=== PATIENT | female | born 1950 | race Caucasian/White ===

== ENCOUNTER → 2016-08-05 | Outpatient (CLI) | payer MEDICARE, BC ==
--- NOTE | 2016-08-05 13:22 | MM ---
Reason for exam: screening (asymptomatic). Last mammogram was performed 1 year ago. History: Patient is postmenopausal and had first child at age 36. Physical Findings: A clinical breast exam by your physician is recommended on an annual basis and results should be correlated with mammographic findings. MG 3D Screening Mammo W/Cad Bilateral CC and MLO view(s) were taken. Prior study comparison: July 31, 2015, bilateral MG screening mammo w CAD. July 25, 2014, bilateral MG screening mammo w CAD. May 05, 2013, bilateral digital screening mammo w/CAD. The breast tissue is heterogeneously dense. This may lower the sensitivity of mammography. Finding: There are typically benign round calcifications in both breasts. There is no discrete abnormality. ASSESSMENT: Benign, BI-RAD 2 RECOMMENDATION: Routine screening mammogram of both breasts in 1 year.
== END | disposition home or self-care (01) ==
LOC: RADMAMWWP 06:51
PROVIDERS: ATTEND Family Medicine
DX: Z12.31 Encounter for screening mammogram for malignant neoplasm of breast (principal)
CPT/HCPCS: 77063; G0202

== ENCOUNTER → 2018-08-10 | Outpatient (CLI) | payer BC, MEDICARE ==
--- NOTE | 2018-08-11 11:48 | MM ---
Reason for exam: screening (asymptomatic). Last mammogram was performed 2 years ago. History: Patient is postmenopausal and had first child at age 36. Physical Findings: A clinical breast exam by your physician is recommended on an annual basis and results should be correlated with mammographic findings. MG Screening Mammo w CAD Bilateral CC and MLO view(s) were taken. Prior study comparison: August 05, 2016, bilateral MG 3d screening mammo w/cad. July 31, 2015, bilateral MG screening mammo w CAD. The breast tissue is heterogeneously dense. This may lower the sensitivity of mammography. There is a 3mm group of calcifications in the left lower inner quadrant at anterior depth. ASSESSMENT: Incomplete: need additional imaging evaluation, BI-RAD 0 RECOMMENDATION: Special view mammogram of the left breast. [facility] will attempt to contact patient to return for supplemental views.
== END | disposition home or self-care (01) ==
LOC: RADMAMWWP 08:09
PROVIDERS: ATTEND Family Medicine
DX: Z12.31 Encounter for screening mammogram for malignant neoplasm of breast (principal)
CPT/HCPCS: 77067

== ENCOUNTER → 2018-08-15 | Outpatient (CLI) | payer MEDICARE ==
--- NOTE | 2018-08-16 07:48 | MM ---
Reason for exam: additional evaluation requested from abnormal screening. Last mammogram was performed less than 1 month ago. History: Patient is postmenopausal and had first child at age 36. Physical Findings: Nurse did not find any significant physical abnormalities on exam. MG 3D Work Up W/Cad LT CC with magnification, LM with magnification, and LM view(s) were taken of the left breast. Prior study comparison: August 10, 2018, bilateral MG screening mammo w CAD. August 05, 2016, bilateral MG 3d screening mammo w/cad. Increasing 7 o'clock slightly heterogeneous grouped calcifications. Biopsy recommended. These results were verbally communicated with the patient and result sheet given to the patient on 08/15/18. ASSESSMENT: Suspicious, BI-RAD 4 RECOMMENDATION: Surgical consultation and stereotactic core biopsy of the left breast. Called Dr. Franco with mammographic findings and has scheduled an appointment for the patient for 09/01/18 at 12:[address] Sutherland. Biopsy scheduled for 09/08/18 at 8:00. PRELIMINARY REPORT CALLED AND FAXED TO DR. SUTHERLAND ON 08/15/18.
== END ==
LOC: RADMAMWWP 14:13
PROVIDERS: ATTEND Family Medicine
DX: R92.8 Other abnormal and inconclusive findings on diagnostic imaging of breast (principal)
CPT/HCPCS: 77065; G0279; 77061

== ENCOUNTER → 2018-09-01 | Outpatient (CLI) | payer MEDICARE ==
[2018-09-01 11:58] VITALS: BP 130/85; PULSE 73; RESP 18; TEMP 99.2; BMI 29.0
--- NOTE | 2018-09-01 12:20 | P.GSHP ---
History of Present Illness H&P Date: 09/01/18 Chief Complaint: abnormal left breast mammogram Layla is a 67-year-old white female who underwent routine screening mammogram was noted to have an area of microcalcification in the left breast. The mammogram was performed on 420 [id number]. Additional views of the left breast were performed and 420 [id number]. The patient does not show anything of concern in her breasts. She has no complaints of any pain in her breasts. She has no nipple discharge or skin changes of concern. Family History: none Hormonal History: menarche: 13 : first at 36, bresat fed: no menopause: 49 BCP: 1 year hormones: none Past Surgical History: 1. appy Past Medical Nistory: none Social History: smoke: none alcohol: beer daily drugs: none - Constitutional Constitutional: Denies chills, Denies fever - EENT Eyes: denies blurred vision, denies pain Ears: deny: decreased hearing, tinnitus Ears, nose, mouth and throat: Denies headache, Denies sore throat - Breasts Breasts: bilateral: as per HPI - Cardiovascular Cardiovascular: Reports high blood pressure, Denies chest pain, Denies shortness of breath - Respiratory Respiratory: Reports cough - Gastrointestinal Gastrointestinal: Denies abdominal pain, Denies diarrhea, Denies nausea, Denies vomiting - Genitourinary (Female) Genitourinary: Denies dysuria, Denies hematuria - Menstruation Menstruation: Reports postmenopausal - Musculoskeletal Comment: arthritis - Integumentary Integumentary: Denies pruritus, Denies rash - Neurological Neurological: Denies numbness, Denies weakness - Psychiatric Psychiatric: Denies anxiety, Denies depression - Endocrine Endocrine: Reports weight change, Denies fatigue - Hematologic/Lymphatic Comment: none - Allergic/Immunologic Allergic/Immunologic: Reports seasonal allergies Past Medical History Past Medical History: No Reported History History of Any Multi-Drug Resistant Organisms: None Reported Past Surgical History: Appendectomy Additional Past Surgical History / Comment(s): COLONOSCOPY IN 2009 Past Anesthesia/Blood Transfusion Reactions: No Reported Reaction, Motion Sickness Past Psychological History: No Psychological Hx Reported Smoking Status: Never smoker Past Alcohol Use History: Occasional Past Drug Use History: None Reported - Past Family History Mother Family Medical History: No Reported History Medications and Allergies Home Medications Medication Instructions Recorded Confirmed Type Cholecalciferol [Vitamin D3] 1 tab PO WEEKLY 03/18/17 09/01/18 History Lisinopril [Zestril] 10 mg PO DAILY 08/22/18 09/01/18 History Allergies Allergy/AdvReac Type Severity Reaction Status Date / Time No Known Allergies Allergy Verified 08/22/18 15:09 Surgical - Exam Vital Signs Temp Pulse Resp BP Pulse Ox 99.2 F 73 18 130/85 96 09/01/18 11:44 09/01/18 11:44 09/01/18 11:44 09/01/18 11:44 09/01/18 11:44 BMI 29 - General well developed, well nourished, no distress - Eyes normal ocular movement - ENT no hearing loss - Neck no masses, trachea midline - Respiratory normal respiratory effort, clear to auscultation - Cardiovascular Rhythm: regular Heart Sounds: normal: S1, S2 - Abdomen Abdomen: soft, non tender, no guarding, no rigid, no rebound - Integumentary normal turgor - Neurologic no disoriented, no combative - Musculoskeletal normal gait, normal posture - Psychiatric oriented to time, oriented to person, oriented to place, speech is normal, memory intact breast exam: Right breast: Multi-positional exam no dominant masses or nodules of concern, fibrocystic breast changes Right axilla: No adenopathy of concern Left breast: Multiple positional exam no dominant masses or nodules of concern, fibrocystic changes Left axilla: No adenopathy of concern Results Mammogram results reviewed Assessment and Plan Assessment: Impression: 1. Fibrocystic breast changes bilaterally 2. Mammographic abnormality left breast 3. Hypertension 4. Arthritis The stereotactic core biopsy procedure was discussed with the patient. She understands risks and benefits and wishes to proceed. Plan: 1. Stereotactic core biopsy left breast. 2. Medical management of medical conditions Cc: Dr. Franco
== END | disposition home or self-care (01) ==
LOC: WWCWWP 11:38
PROVIDERS: ATTEND Surgery
DX: Z53.9 Procedure and treatment not carried out, unspecified reason (principal)

== ENCOUNTER → 2018-09-08 | Day surgery (SDC) | payer MEDICARE ==
[2018-09-08 07:19] VITALS: RESP 16; BMI 29.0
[2018-09-08 08:44] VITALS: BP 144/88; PULSE 66; TEMP 98.4
--- NOTE | 2018-09-08 09:17 | MM ---
EXAMINATION TYPE: MG stereo VAD BX LT DATE OF EXAM: 09/08/2018 COMPARISON: 08/10/2018 CLINICAL HISTORY: 3 mm group of calcifications in the left lower inner quadrant at anterior depth for which stereotactic guided biopsy was recommended. TECHNIQUE: Stereotactic guided core biopsy of left breast. FINDINGS: The procedure of stereotactic guided core biopsy was explained to the patient. Benefits, a lternatives, and risks were discussed. An informed consent was then obtained. Preprocedural timeout was performed. [facility]. Shortness pathway was CC from below approach. I perform ed the localization, then surgeon, Dr. Alex Gomez performed the remainder of the procedure. A vacuum assisted biopsy gun was used to obtain multiple core samples. The patient tolerated the procedure well without any immediate complication. The patient was kept in the radiology department for short stay after the procedure and then discharged home in stable condi tion. Targeted calcifications are identified in specimen mammogram. Post biopsy mammogram shows the T-shaped [employer] biopsy marker to appear in satisfactory position relative to the targeted area of concern on the preprocedure images. IMPRESSION: SUCCESSFUL, UNCOMPLICATED STEREOTACTIC GUIDED CORE BIOPSY OF AREA OF CONCERN IN THE LEFT BREAST, FULL PATHOLOGY RESULTS TO FOLLOW.
--- NOTE | 2018-09-08 10:40 | P.OP ---
Date of Procedure: 09/08/18 Preoperative Diagnosis: Mammographic abnormality left breast Postoperative Diagnosis: Mammographic abnormality left breast Procedure(s) Performed: Stereotactic core biopsy left breast Anesthesia: local Surgeon: Mona Chavez Pathology: other (Breast tissue) Condition: stable Disposition: same day Indications for Procedure: Mammographic abnormality left breast, microcalcifications Description of Procedure: The patient was noted on a routine mammogram to have an abnormality radiographically in her left breast. This was an area of microcalcifications for which biopsy was recommended. The risks and benefits of stereotactic core biopsy were discussed with the patient and she wished to proceed. The patient was brought to the stereotactic core room and positioned on the lower table. The area of concern was approached from a CC from below approach. A portable track line marker film was performed which identified the area of concern. The lesion was targeted. The breast was then prepped using Betadine. 20 mL of 1% lidocaine was used to anesthetize the area of concern. A 9-gauge vacuum assisted rotating core biopsy needle was advanced to the correct target. Prefire films were obtained showing that the needle was in the correct location. The needle was fired and postoperative films were obtained again showing the needle in the correct location. Approximately 12 core biopsy specimens were obtained. Radiograph of the specimen did not reveal the area of calcification. The needle was withdrawn slightly and a repeat radiograph was obtained. It appeared that the lesion was at the 6:00 region of the needle and therefore repeat core biopsies from 5 to 7:00 were performed. Radiograph of the specimen did reveal the area of concern had been adequately sampled with microcalcifications in the specimen. A secure leeann marker was deployed. Radiograph revealed this was in the correct location. The patient tolerated the procedure in stable condition. The patient will follow with Dr. Johnson in 1 week. Specimen was sent to pathology.
== END ==
LOC: RADMAMWWP 06:56
PROVIDERS: ATTEND Surgery
DX: D24.2 Benign neoplasm of left breast (principal); R92.1 Mammographic calcification found on diagnostic imaging of breast
CPT/HCPCS: 88305; 19081; A4648; J2001

== ENCOUNTER → 2018-09-15 | Outpatient (CLI) | payer MEDICARE ==
[2018-09-15 15:33] VITALS: BP 145/89; PULSE 74; RESP 18; TEMP 98.1; BMI 29.0
--- NOTE | 2018-09-15 15:42 | P.PN ---
Subjective Progress Note Date: 09/15/18 Patient is status post sterotactic core biopsy of the left breast on 09-08-18. Her pathology showed an intraductal papilloma. She has no complaints related to the procedure. Objective - Vital Signs Vital signs: Vital Signs Temp 98.1 F 09/15/18 15:24 Pulse 74 09/15/18 15:24 Resp 18 09/15/18 15:24 BP 145/89 09/15/18 15:24 Pulse Ox 98 09/15/18 15:24 Intake & Output 09/14/18 09/15/18 09/15/18 18:59 06:59 18:59 Weight 83.915 kg - Exam BMI 29 - Constitutional General appearance: Present: obese - EENT Eyes: Present: EOMI ENT: Present: hearing grossly normal - Neck Neck: Present: normal ROM - Respiratory Respiratory: bilateral: CTA - Cardiovascular Rhythm: regular Heart sounds: normal: S1, S2 - Integumentary Integumentary: Present: normal turgor - Musculoskeletal Musculoskeletal: Present: gait normal - Psychiatric Psychiatric: Present: A&O x's 3, appropriate affect, intact judgment & insight - Additional findings Additional findings: left breast: echymosis inferior breast related to the core biopsy, small hematoma Assessment and Plan Assessment: Impression: 1. HTN 2. intraductal papilloma 3. arthritis Plan: 1. needle localization and resection of left breast lesion 2. medical managment of medical conditions Patient understands the risk and benefits and wishes to proceed. CC: Dr. Franco
== END | disposition home or self-care (01) ==
LOC: WWCWWP 15:22
PROVIDERS: ATTEND Surgery
DX: Z53.9 Procedure and treatment not carried out, unspecified reason (principal)

== ENCOUNTER 2018-11-08 08:53 | Day surgery (SDC) | payer MEDICARE ==
[2018-11-03 13:22] VITALS: BMI 29.0
--- NOTE | 2018-11-04 17:08 | P.PN ---
Subjective Progress Note Date: 11/04/18 Principal diagnosis: intraductal papilloma Layla is a 67-year-old white female who underwent routine screening mammogram was noted to have an area of microcalcification in the left breast. The mammogram was performed on . Additional views of the left breast were performed and [id number]. The patient did not have anything of concern in her breasts. She had no complaints of any pain in her breasts. She had no nipple discharge or skin changes of concern. She underwent a left breast stertacic core biopsy on . Pathology revealed an intraductal papilloma. The patient was recommended to undergo needle local excisional biopsy of this area. Family History: none Hormonal History: menarche: 13 : first at 36, bresat fed: no menopause: 49 BCP: 1 year hormones: none Past Surgical History: 1. appy Past Medical Nistory: none Social History: smoke: none alcohol: beer daily drugs: none - Constitutional Constitutional: Denies chills, Denies fever - EENT Eyes: denies blurred vision, denies pain Ears: deny: decreased hearing, tinnitus Ears, nose, mouth and throat: Denies headache, Denies sore throat - Breasts Breasts: bilateral: as per HPI - Cardiovascular Cardiovascular: Reports high blood pressure, Denies chest pain, Denies shortness of breath - Respiratory Respiratory: Reports cough - Gastrointestinal Gastrointestinal: Denies abdominal pain, Denies diarrhea, Denies nausea, Denies vomiting - Genitourinary (Female) Genitourinary: Denies dysuria, Denies hematuria - Menstruation Menstruation: Reports postmenopausal - Musculoskeletal Comment: arthritis - Integumentary Integumentary: Denies pruritus, Denies rash - Neurological Neurological: Denies numbness, Denies weakness - Psychiatric Psychiatric: Denies anxiety, Denies depression - Endocrine Endocrine: Reports weight change, Denies fatigue - Hematologic/Lymphatic Comment: none - Allergic/Immunologic Allergic/Immunologic: Reports seasonal allergies Past Medical History Past Medical History: No Reported History History of Any Multi-Drug Resistant Organisms: None Reported Past Surgical History: Appendectomy Additional Past Surgical History / Comment(s): COLONOSCOPY IN 2009 Past Anesthesia/Blood Transfusion Reactions: No Reported Reaction, Motion Sickness Past Psychological History: No Psychological Hx Reported Smoking Status: Never smoker Past Alcohol Use History: Occasional Past Drug Use History: None Reported Objective - Vital Signs Vital signs: Intake & Output 11/03/18 11/04/18 11/04/18 18:59 06:59 18:59 Weight 83.915 kg - Constitutional General appearance: Present: average body habitus - EENT Eyes: Present: EOMI ENT: Present: hearing grossly normal - Neck Neck: Present: normal ROM - Respiratory Respiratory: bilateral: CTA - Cardiovascular Rhythm: regular Heart sounds: normal: S1, S2 - Gastrointestinal General gastrointestinal: Present: soft - Integumentary Integumentary: Present: normal turgor - Musculoskeletal Musculoskeletal: Present: gait normal - Psychiatric Psychiatric: Present: A&O x's 3, appropriate affect, intact judgment & insight - Additional findings Additional findings: Breast examination: Right breast: Multi-positional exam no dominant masses or nodules of concern Right axilla: No adenopathy of concern Left breast: Multi-positional exam no dominant masses or nodules of concern Left axilla: No adenopathy of concern Following stereo biopsy. Biopsy site is clean and dry no evidence of any infection Assessment and Plan Assessment: Impression: 1. Intraductal papilloma on core biopsy of left breast 2. Mammographic abnormality left breast 2. Hypertension 4. Arthritis Risks and benefits of needle local excisional biopsy. Concern in the left breast were discussed with the patient. The patient wishes to proceed to have this done. Plan: 1. Needle local excisional biopsy of concern in left breast 2. Medical management of medical conditions CC: Dr. Franco
[~2018-11-08 08:53] MED LIST: ALPRAZolam 0.25 MG TAB PO PRN; DEXAMETHASONE SOD PHOSPHATE 10 MG/ML 1 ML VIAL IV ONE; HEPARIN SODIUM,PORCINE 5,000 UNIT/ML 1 ML VIAL SQ ONE; HYDROmorphone 0.5 MG/0.5 ML SYRINGE IVP PRN; LACTATED RINGERS 1,000 ML IV SCH; ONDANSETRON 4 MG/2 ML VIAL IVP ONE; Pre Op ABX Message 1 EACH MISC MISCELLANE ONE
[2018-11-08] MEDS ORDERED: LIDOCAINE 1% 20 ML VIAL (10MG/ML) FOR IV START INTRADERMA ONE (09:30)
[2018-11-08] MEDS ORDERED: LIDOCAINE 1% INJ 10MG/ML (20 ML MDV) SQ ONE (10:28)
[2018-11-08] MEDS ORDERED: HEPARIN SODIUM,PORCINE 5,000 UNIT/ML 1 ML VIAL SQ ONE (11:43)
[2018-11-08] MEDS ORDERED: MIDAZOLAM 2 MG/2 ML VIAL ONE (11:46)
[2018-11-08] MEDS ORDERED: LIDOCAINE 1% INJ 10MG/ML (20 ML MDV) ONE (11:46)
[2018-11-08] MEDS ORDERED: fentaNYL (PF) 50 MCG/ML 2 ML AMP ONE (11:46)
[2018-11-08] MEDS ORDERED: ePHEDrine SULFATE/0.9% NACL/PF 50 MG/5 ML SYRINGE IV ONE (11:46)
[2018-11-08] MEDS ORDERED: PROPOFOL 10 MG/ML 20 ML VIAL IV ONE (11:46)
[2018-11-08] MEDS ORDERED: LIDOCAINE (PF) 10 MG/ML 2 ML VIAL SQ ONE (12:12)
[2018-11-08] MEDS ORDERED: LACTATED RINGERS 1,000 ML IV ONE (12:36)
--- NOTE | 2018-11-08 12:49 | P.OP ---
Date of Procedure: 11/08/18 Preoperative Diagnosis: Intraductal papilloma Postoperative Diagnosis: Same Procedure(s) Performed: Needle local excisional biopsy intraductal papilloma left breast Anesthesia: GETA Surgeon: Mona Chavez Estimated Blood Loss (ml): 5 IV fluids (ml): 600 Pathology: other (breast tissue) Condition: stable Disposition: same day Indications for Procedure: core biopsy intraductal papilloma Description of Procedure: Following localization of a core biopsy identified intraductal papilloma of the left breast the patient was taken to the operating room. Following induction of general anesthesia the left breast was prepped and draped in a sterile fashion. A circumareolar incision was made. This was carried down to the shaft of the needle. The needle was brought up into the incision. Surrounding tissue was excised. After we were assured that hemostasis was attained the wound was well irrigated. The cavity was marked using titanium clips. The deep tissues were closed using a Vicryl suture. The subcutaneous tissue was closed using a Vicryl suture. The skin was closed using a subcuticular suture. The specimen was painted for orientation. The specimen was sent to radiology which confirmed the area of concern had been removed. Instrument and sponge counts were correct at the end of the case. The patient tolerated the procedure in stable condition. The specimen was sent to pathology. The patient will follow-up with Dr. Johnson next week.
--- NOTE | 2018-11-08 12:51 | P.DS ---
Providers Attending physician: Mona Chavez Primary care physician: Carlyn Franco Plan - Discharge Summary Discharge Rx Participant: No New Discharge Prescriptions: No Action Cholecalciferol [Vitamin D3] 1 tab PO WEEKLY Lisinopril [Zestril] 10 mg PO DAILY Discharge Medication List Cholecalciferol [Vitamin D3] 1 tab PO WEEKLY 03/18/17 [History] Lisinopril [Zestril] 10 mg PO DAILY 08/22/18 [History] Follow up Appointment(s)/Referral(s): Mona Chavez MD [STAFF PHYSICIAN] - 1 Week Activity/Diet/Wound Care/Special Instructions: Do not drive today Wear Bra at all times Patient may shower after 48 hours Discharge Disposition: HOME SELF-CARE
[2018-11-08 13:06] VITALS: TEMP 97.4
[2018-11-08 13:19] VITALS: RESP 16
[2018-11-08 14:36] VITALS: BP 142/78; PULSE 78
--- NOTE | 2018-11-08 18:36 | MM ---
EXAMINATION TYPE: MG pre op needle loc LT, MG surgical specimen LT DATE OF EXAM: 11/08/2018 COMPARISON: 08/10/2018 and 08/15/2018 CLINICAL HISTORY: 67-year-old female with biopsy-proven high risk lesion, intraductal papilloma at site of calcifications. TECHNIQUE: Needle localization with wire placement and surgical excision of area of concern in the 7:00 left breast. FINDINGS: The procedure of needle localization with wire placement and than surgical excision was explained to the patient. Benefits, alternatives, and risks were discussed. An informed consent was then obtained. The shortest pathway for procedure was chosen. Shortest pathway was a CC from below approach. The overlying skin was prepped and draped in usual sterile fashion. Lidocaine was used as anesthetic into the skin and subcutaneous tissue up to the level of area of concern. A 5 cm Kopans needle was used. It was placed via an inferior approach under mammographic guidance. Subsequent 90 degrees mammogram show the needle to be in satisfactory position relative to the targeted area. At this point, wire was placed and the needle was withdrawn. The wire was fixed to patient's skin. Images were marked for surgeon. The patient tolerated the procedure well without any immediate complication. The patient was kept in the radiology department for short stay after the procedure and then taken to surgery for surgical excision. Targeted clip and wire are identified in specimen mammogram. The patient was kept in hospital for short stay after the procedure and then discharged home in stable condition. IMPRESSION: Successful, uncomplicated needle localization with wire placement and surgical excision of site of biopsy-proven papilloma in the 7:00 left breast. Full pathology results to follow. Pathology Results: Benign LEFT BREAST LESION, LUMPECTOMY: Status post prior mammotome biopsy ([id number]) with no residual papillary intraductal lesion or malignant neoplasm. Focal florid duct hyperplasia is identified in block 1 near the superior anterior blue inked margin of resection. Recommendation Follow up mammogram of the left breast in 6 months. KEESHA
== END 2018-11-08 14:26 | disposition home or self-care (01) ==
LOC: OR 08:53
PROVIDERS: ATTEND Surgery
DX: D24.2 Benign neoplasm of left breast (principal); I10 Essential (primary) hypertension; M19.90 Unspecified osteoarthritis, unspecified site; Z78.0 Asymptomatic menopausal state; Z79.899 Other long term (current) drug therapy
CPT/HCPCS: 19125; 19281; 88307; 76098; J2250; J2001 ×2; J1644; J1100; J2405; J3010; J2704

== ENCOUNTER → 2018-11-17 | Outpatient (CLI) | payer MEDICARE ==
[2018-11-17 10:42] VITALS: BP 147/84; PULSE 67; RESP 18; TEMP 97.5; BMI 29.0
--- NOTE | 2018-11-17 10:46 | P.PN ---
Progress Note - Text Progress Note Date: 11/17/18 Layla is status post lumpectomy of the left breast on 72 [id number]. Pathology revealed no residual papillary intraductal lesion or malignant lesion. Focal florid ductal hyperplasia identified. The patient has no complaints since the surgery. She is doing well. Exam: Heart: Regular rate and rhythm Lungs: Clear Incision: Clean and dry Impression: 1. Fibrocystic breast changes with ductal hyperplasia 2. Incision healing well at this time Plan: 1. Repeat left breast mammogram in 6 months with physician exam at that time CC: Dr. Franco
== END | disposition home or self-care (01) ==
LOC: WWCWWP 10:29
PROVIDERS: ATTEND Surgery
DX: Z53.9 Procedure and treatment not carried out, unspecified reason (principal)

== ENCOUNTER → 2019-05-17 | Outpatient (CLI) | payer MEDICARE ==
--- NOTE | 2019-05-17 09:02 | MM ---
Reason for exam: follow-up at short interval from prior study. Last mammogram was performed 9 months ago. History: Patient is postmenopausal, has history of high-risk lesion on a previous biopsy at age 67, and had first child at age 36. Benign MG pre op needle loc LT of the left breast, November 08, 2018. Lumpectomy of the left breast, November 08, 2018. High risk MG stereo VAD BX LT of the left breast, September 08, 2018. Physical Findings: Nurse did not find any significant physical abnormalities on exam. MG 3D Diag Mammo W/Cad LT CC and MLO view(s) were taken of the left breast. Prior study comparison: August 15, 2018, left breast MG 3d work up w/cad LT. August 10, 2018, bilateral MG screening mammo w CAD. The breast tissue is heterogeneously dense. This may lower the sensitivity of mammography. No suspicious abnormality. Post excisional change on the left. These results were verbally communicated with the patient and result sheet given to the patient on 05/17/19. ASSESSMENT: Benign, BI-RAD 2 RECOMMENDATION: Return to routine screening mammogram schedule for both breasts. Back on schedule for July 2019.
== END | disposition home or self-care (01) ==
LOC: RADMAMWWP 07:31
PROVIDERS: ATTEND Surgery
DX: R92.8 Other abnormal and inconclusive findings on diagnostic imaging of breast (principal)
CPT/HCPCS: 77065; G0279; 77061

== ENCOUNTER → 2019-12-22 | Outpatient (CLI) | payer MEDICARE ==
--- NOTE | 2019-12-22 13:53 | MM ---
Reason for exam: additional evaluation requested from prior study. Last mammogram was performed 7 months ago. History: Patient is postmenopausal, has history of high-risk lesion on a previous biopsy at age 67, and had first child at age 36. Benign MG pre op needle loc LT of the left breast, November 08, 2018. Lumpectomy of the left breast, November 08, 2018. High risk MG stereo VAD BX LT of the left breast, September 08, 2018. Physical Findings: Nurse did not find any significant physical abnormalities on exam. MG 3D Diag Mammo W/Cad NETO Bilateral CC and MLO view(s) were taken. Prior study comparison: May 17, 2019, left breast MG 3d diag mammo w/cad LT. August 15, 2018, left breast MG 3d work up w/cad LT. There are scattered fibroglandular densities. Post excision changes left breast. No significant new findings when compared with previous films. These results were verbally communicated with the patient and result sheet given to the patient on 12/22/19. ASSESSMENT: Benign, BI-RAD 2 RECOMMENDATION: Routine screening mammogram of both breasts in 1 year.
== END | disposition home or self-care (01) ==
LOC: RADMAMWWP 12:38
PROVIDERS: ATTEND Family Medicine
DX: R92.8 Other abnormal and inconclusive findings on diagnostic imaging of breast (principal)
CPT/HCPCS: 77066; G0279; 77062

== ENCOUNTER → 2021-01-30 | Outpatient (CLI) | payer MEDICARE ==
--- NOTE | 2021-01-31 12:11 | MM ---
Reason for exam: screening (asymptomatic). Last mammogram was performed 1 year and 1 month ago. History: Patient is postmenopausal, has history of high-risk lesion on a previous biopsy at age 67, and had first child at age 36. Benign MG pre op needle loc LT of the left breast, November 08, 2018. Lumpectomy of the left breast, November 08, 2018. High risk MG stereo VAD BX LT of the left breast, September 08, 2018. Took hormonal contraceptives for 2 years. Physical Findings: A clinical breast exam by your physician is recommended on an annual basis and results should be correlated with mammographic findings. MG 3D Screening Mammo W/Cad Bilateral CC and MLO view(s) were taken. Prior study comparison: December 22, 2019, bilateral MG 3d diag mammo w/cad NETO. May 17, 2019, left breast MG 3d diag mammo w/cad LT. There are scattered fibroglandular densities. Surgical clips left breast. No significant changes when compared with prior studies. ASSESSMENT: Benign, BI-RAD 2 RECOMMENDATION: Routine screening mammogram of both breasts in 1 year.
== END | disposition home or self-care (01) ==
LOC: RADMAMWWP 07:11
PROVIDERS: ATTEND Family Medicine
DX: Z12.31 Encounter for screening mammogram for malignant neoplasm of breast (principal); Z78.0 Asymptomatic menopausal state
CPT/HCPCS: 77063; 77067

== ENCOUNTER → 2021-05-28 | Outpatient (CLI) | payer MEDICARE ==
--- NOTE | 2021-05-28 13:07 | MR ---
EXAMINATION TYPE: MR shoulder LT wo con DATE OF EXAM: 05/28/2021 12:40 PM COMPARISON: NONE HISTORY: lt shoulder pain TECHNIQUE: Multiplanar multispin echo imaging of the left shoulder was performed. 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 No evidence for full-thickness tear or partial tear at this time. Bursa: No bursal effusion or thickening is seen. Musculature: There is no muscular tear, contusion, or atrophy. Acromioclavicular joint : There are mild degenerative changes of the acromioclavicular joint. There is no anterior or lateral acromial downsloping. Osseous structures : There are no fractures or regions of abnormal bone marrow signal intensity. Long biceps tendon : The biceps tendon is normally situated within the bicipital groove. No complete or partial biceps tendon tear is present. Glenohumeral Joint fluid : There is no glenohumeral joint effusion. Cartilage and Bone : No focal hyaline cartilage defects are noted. No Hill-Sachs, reverse Hill-Sachs, or bony Bankart lesions are seen. Labrum : There are no SLAP or soft tissue Bankart lesions. No paralabral cysts are seen. OTHER FINDINGS : none IMPRESSION: 1. Chronic tendinopathy supraspinatus tendon.
== END | disposition home or self-care (01) ==
LOC: RADMRIMAIN 10:55
PROVIDERS: ATTEND Orthopaedic Surgery
DX: M67.814 Other specified disorders of tendon, left shoulder (principal)

== ENCOUNTER 2021-08-07 05:45 | Day surgery (SDC) | payer MEDICARE ==
[2021-08-06 09:47] VITALS: BMI 28.1
--- NOTE | 2021-08-06 14:07 | HP ---
HISTORY AND PHYSICAL DATE OF SURGERY: 08/07/2021 Layla Nobles is a 70-year-old patient seen with progressive left shoulder pain. We discussed options for treatment. She elected to proceed with left shoulder arthroscopy. Consent regarding the procedure was obtained. Medical clearance was provided by Dr. Carlyn Franco. PAST MEDICAL HISTORY: Hypertension. PAST SURGICAL HISTORY: Noncontributory. DAILY MEDICATIONS: Lisinopril. ALLERGIES: NONE REPORTED. SOCIAL HISTORY: She denies current tobacco use. PHYSICAL EVALUATION OF THE LEFT SHOULDER: Flexion is 100 degrees. Abduction is 90 degrees. External rotation is 40 degrees with pain and weakness. Tenderness along the anterolateral acromion and rotator cuff insertion. Impingement is positive at 90 degrees. Cross-body adduction sign is positive. Drop-arm sign is positive. Distal neurovascular exam is intact. Radiographs of the left shoulder revealed a type 2 acromion, evidence for acromioclavicular joint osteoarthritis changes of greater tuberosity. MRI left shoulder revealed some chronic tendinopathy. IMPRESSION: 1. Left shoulder impingement with possible rotator cuff tear. 2. Left shoulder acromioclavicular joint osteoarthritis. 3. Hypertension. PLAN: Left shoulder arthroscopy with subacromial decompression, arthroscopic Jeanne procedure, possible arthroscopic rotator cuff repair and debridement. MMODL / IJN: [id number] /
[2021-08-07] MEDS ORDERED: DEXAMETHASONE SOD PHOSPHATE 4 MG/ML 1 ML VIAL IV ONE (06:09)
[2021-08-07] MEDS ORDERED: ONDANSETRON 4 MG/2 ML VIAL IVP ONE (06:09)
[2021-08-07] MEDS ORDERED: LACTATED RINGERS 1,000 ML IV SCH (06:09)
[2021-08-07] MEDS ORDERED: HYDROmorphone 0.5 MG/0.5 ML SYRINGE IVP PRN (06:09)
[2021-08-07 06:38] VITALS: TEMP 97.2
[2021-08-07] MEDS ORDERED: MIDAZOLAM 2 MG/2 ML VIAL IVP ONE (06:59)
[2021-08-07] MEDS ORDERED: DEXAMETHASONE SOD PHOSPHATE 10 MG/ML 1 ML VIAL ONE (07:25)
[2021-08-07] MEDS ORDERED: PROPOFOL 10 MG/ML 20 ML VIAL IV ONE (07:25)
[2021-08-07] MEDS ORDERED: fentaNYL (PF) 50 MCG/ML 2 ML AMP ONE (07:25)
[2021-08-07] MEDS ORDERED: ROPIVACAINE 5 MG/ML 30 ML VIAL ONE (07:25)
[2021-08-07] MEDS ORDERED: LIDOCAINE 1% INJ 10MG/ML (20 ML MDV) ONE (07:25)
[2021-08-07] MEDS ORDERED: HYDROmorphone (PF) 1 MG/ML ONE (07:25)
[2021-08-07] MEDS ORDERED: SUCCINYLCHOLINE CHLORIDE 100 MG/5 ML SYR IV ONE (07:25)
--- NOTE | 2021-08-07 09:09 | P.OP ---
Date of Procedure: 08/07/21 Preoperative Diagnosis: Left shoulder impingement Postoperative Diagnosis: 1. Left shoulder rotator cuff tear 2. Left shoulder impingement 3. Left shoulder acromioclavicular joint osteoarthritis Procedure(s) Performed: 1. Left shoulder arthroscopic rotator cuff repair 2. Left shoulder arthroscopic Jeanne procedure 3. Left shoulder arthroscopic subacromial decompression Implants: 44.75 Arthrex swivel lock anchors Anesthesia: GETA, regional (Interscalene block) Surgeon: Yovanny Moyer Health And Safety Trainer #1: Benedict Lugo Estimated Blood Loss (ml): 11 Pathology: none sent Condition: stable Disposition: PACU Indications for Procedure: 70-year-old patient seen with progressive left shoulder pain. After having treatment options discussed, she elected to proceed with arthroscopy. Operative Findings: see description of procedure Description of Procedure: Patient underwent an interscalene block by department of anesthesia. The patient was then taken to the operative suite. The patient underwent a general anesthetic by the department of anesthesia. The patient was placed into a lateral position and secured. There was appropriate padding of the bony prom inence. Left shoulder was then prepped and draped in normal sterile orthopedic fashion. We placed the extremity in 10 pounds of longitudinal traction. A posterior incision was now made for a posterior working portal site. The trocar and cannula were inserted into the glenohumeral joint. Arthroscopy was initiated. Spinal needle was now inserted anteriorly, to ascertain the anterior working portal site. An incision was now made in that area, a trocar was inserted followed by a probe. There was some mild superficial fraying of the anterior labrum. There were mild grade 1 chondromalacia changes involving the joint with no osteochondral tears present. The biceps was probed and found to be stable. I debrided out the superficial fraying of the labrum anteriorly. Again probe labrum and it was felt to be stable. Instruments glenohumeral joint. Utilizing the posterior working portal site, the trocar and cannula were inserted into the subacromial space. Arthroscopy initiated. I made an incision 2 fingerbreadths lateral to the acromion. I introduced my trocar followed by my ArthroCare ablator. I now began ablating thick subacromial bursal tissue, which exposed the undersurface of the anterior acromion. There was diminished subacromial space. There was a very prominent anterior acromion. A motorized bur was introduced and a subacromial decompression was performed. I also excised s ome osteophytes off the inferior aspect of the distal clavicle. The AC joint was visualized and noted to be fairly arthritic. The motorized bur was introduced in the anterior portal site and a Jeanne procedure was performed without difficulty, decompressing the AC joint nicely. I turned my attention to the rotator cuff. There was a 2.5 cm rotator cuff tear. I debrided the margins getting down to stable tendon tissue. I introduced my motorized bur and abraded the footprint area, getting some petechial bleeding. I now made an accessory portal site off the lateral aspect of the acromion. I punched 2 holes medial for medial row fixation with the assistance of Jordan ALEXANDER carefully tapping the punch with a mallet as I held the punch and the camera. I now introduced both anchors into the pre-punched holes and Jordan ALEXANDER tapped them with the mallet as I held anchors and the camera. Jordan ALEXANDER now screwed the anchors in place a while I held the anchor guide and camera. All 8 limbs of suture were now passed through good bites of rotator cuff tendon. I now punched 2 holes for lateral row fixation again I held the punch and camera while Jordan ALEXANDER used a mallet to tap in the punch. We now passed sutures through both anchors and individually I introduced the anchors into the pre-punched holes I held the anchor guide in position with one hand holding the camera with the other hand while Jordan ALEXANDER tensioned the sutures and screwed in the anchors one at a time. All residual suture limbs were now clipped. We had good compression of the tendon along the entire footprint. Instruments now removed from the portal sites. All portal sites were approximated with nylon suture. Sterile dressings were applied followed by a shoulder immobilizer. Benedict ALEXANDER assisted in this complex case. The patient was awakened, transferred to a bed, and taken to recovery in stable condition.
--- NOTE | 2021-08-07 09:12 | P.ANPRN ---
Procedure Note - Anesthesia - Nerve Block Performed Left Interscalene Single Time Out Performed: Yes Date of Procedure: 08/07/21 Procedure Start Time: 06:49 Procedure Stop Time: 06:54 Location of Patient: PreOp Indication: Acute Post-Operative Pain, Analgesia, Dx/Pain Location, Requested by Surgeon Specifically requested for management of pain by : Yovanny Moyer Sedation Type: Sedate with meaningful contact maintained Preparation: Sterile Prep Position: Supine Catheter: None Needle Types: Pajunk Needle Gauge: 20 Ultrasound used to visualize needle placement: Yes Ultrasound used to observe medication spread: Yes Injectate: 0.5% Ropivacaine (see comment for volume) (20cc + 10mg dexamethasone) Blood Aspirated: No Pain Paresthesia on Injection Noted: No Resistance on Injection: Normal Image Stored and Saved: Yes Events: Uneventful and Well Tolerated
[2021-08-07 09:22] VITALS: RESP 16
[2021-08-07 10:31] VITALS: BP 142/80; PULSE 88
== END 2021-08-07 10:49 | disposition home or self-care (01) ==
LOC: OR 05:45
PROVIDERS: ATTEND Orthopaedic Surgery
DX: M75.42 Impingement syndrome of left shoulder (principal); M19.012 Primary osteoarthritis, left shoulder; M94.212 Chondromalacia, left shoulder; M75.102 Unspecified rotator cuff tear or rupture of left shoulder, not specified as traumatic; I10 Essential (primary) hypertension; E55.9 Vitamin D deficiency, unspecified; I45.10 Unspecified right bundle-branch block; Z79.899 Other long term (current) drug therapy
CPT/HCPCS: 64415; 76942; 29824; 29827; 29826; C1713 ×2; J2250; J1100 ×2; J0690; J2405; J2001; J3010; J1170; J2795; J0330; J2704

== ENCOUNTER → 2022-03-04 | Outpatient (CLI) | payer MEDICARE ==
--- NOTE | 2022-03-05 18:19 | MM ---
Reason for Exam: Screening (asymptomatic). Last mammogram was performed 1 year(s) and 1 month(s) ago. Patient History: Menarche at age 12. First Full-Term at age 36. Late child-bearing (after 30). Postmenopausal. Patient used Hormonal Contraceptives for 2 years. 11/08/2018, Lumpectomy on the Left side. 11/08/2018, Benign Core Biopsy on the left side. 09/08/2018, High risk Core Biopsy on the left side. Risk Values: Margarita 5 year model risk: 3.6%. NCI Lifetime model risk: 9.8%. Prior Study Comparison: 04/04/1994 Screening Mammogram, Unknown. 07/25/2014 Bilateral Screening Mammogram, [facility]. 07/31/2015 Bilateral Screening Mammogram, [facility]. 08/05/2016 Bilateral Screening Mammogram, [facility]. 08/10/2018 Bilateral Screening Mammogram, [facility]. 08/15/2018 Left Diagnostic Mammogram, [facility]. 05/17/2019 Left Diagnostic Mammogram, [facility]. 12/22/2019 Bilateral Diagnostic Mammogram, [facility]. 01/30/2021 Bilateral Screening Mammogram, [facility]. Tissue Density: The breast tissue is heterogeneously dense. This may lower the sensitivity of mammography. Findings: Analyzed By CAD. Postexcisional changes left breast. There is no suspicious group of microcalcifications or new suspicious mass in either breast. No significant change from prior exams. Overall Assessment: Benign, BI-RAD 2 Management: Screening Mammogram of both breasts in 1 year. 1. Patient should continue monthly self breast exams. 2. A clinical breast exam by your physician is recommended on an annual basis. 3. This exam should not preclude additional follow-up of suspicious palpable abnormalities. Electronically signed and approved by: Bharath Ramos M.D. Radiologist
== END | disposition home or self-care (01) ==
LOC: RADMAMWWP 07:48
PROVIDERS: ATTEND Family Medicine
DX: Z12.31 Encounter for screening mammogram for malignant neoplasm of breast (principal); Z78.0 Asymptomatic menopausal state
CPT/HCPCS: 77063; 77067

== ENCOUNTER 2022-09-18 12:52 | Emergency (ER) | payer MEDICARE ==
[2022-09-18 12:57] VITALS: TEMP 97.4
[2022-09-18] MEDS ORDERED: KETOROLAC 15 MG/ML 1 ML VIAL IVP STA (13:26)
[2022-09-18] MEDS ORDERED: ASPIRIN 81 MG PO STA (13:26)
[2022-09-18 14:12] LABS: Basophils % (A) 1 %; Eosinophils # (A) 0.2 k/uL (0-0.7); Eosinophils % (A) 3 %; HGB 13.3 gm/dL (11.4-16.0); Lymphocytes # (A) 2.4 k/uL (1.0-4.8); Lymphocytes % (A) 31 %; MCH 30.4 pg (25.0-35.0); MCHC 33.3 g/dL (31.0-37.0); MCV 91.4 fL (80.0-100.0); Mean Platelet Volume 7.7; Monocytes # (A) 0.6 k/uL (0-1.0); Monocytes % (A) 7 %; Neutrophils # (A) 4.3 k/uL (1.3-7.7); Neutrophils % (A) 56 %; Platelet Count 278 k/uL (150-450); RBC 4.38 m/uL (3.80-5.40); WBC 7.8 k/uL (3.8-10.6)
--- NOTE | 2022-09-18 14:15 | XR ---
EXAMINATION TYPE: XR chest 2V DATE OF EXAM: 09/18/2022 COMPARISON: NONE HISTORY: Chest pain. TECHNIQUE: Frontal and lateral views of the chest are obtained. FINDINGS: There is no focal air space opacity, pleural effusion, or pneumothorax seen. The cardiac silhouette size is within normal limits. Multilevel spurring in the thoracic spine is present. Some u nderlying scoliosis is seen. IMPRESSION: No acute process.
[2022-09-18 14:23] LABS: Partial Thromboplastin Time 23.8 sec (22.0-30.0); Prothrombin Time 10.6 sec (9.0-12.0)
--- NOTE | 2022-09-18 14:25 | ED ---
General Adult HPI - General Source: patient, RN notes reviewed, old records reviewed Mode of arrival: ambulatory Limitations: no limitations <Jose J Gilbert - Last Filed: 09/18/22 14:58> <Max Gomez - Last Filed: 09/18/22 15:56> - General Chief complaint: Chest Pain Stated complaint: Left side pain Time Seen by Provider: 09/18/22 13:11 - History of Present Illness Initial comments: Patient is a 71-year-old female presents to a Department complaining of chest pain. Has been having it since approximately 8 AM this morning. States it is over the left shoulder and in the right armpit. Does have a history of left shoulder replacement surgery. States it started when she was lifting heavy boxes at work. Believe she may have tweaked something pulled a muscle but presents emergency department for further evaluation. Pain is worse on palpation as well as with movement of the left shoulder. Denies any shortness of breath. Denies any diaphoresis. Denies any nausea or vomiting. Denies any abdominal pain. Denies any history of cardiac disease/stenting. Patient does have hypertension. Presents for further evaluation at this time. Discussed the pain as an achy, sharp sensation worse with specific movements. (Jose J Gilbert) - Related Data Home Medications Medication Instructions Recorded Confirmed lisinopriL [Zestril] 10 mg PO DAILY 08/22/18 09/18/22 Ergocalciferol [Vitamin D2 (1250 1,250 mcg PO MO 08/06/21 09/18/22 Mcg = [id number] Iu)] Allergies Allergy/AdvReac Type Severity Reaction Status Date / Time No Known Allergies Allergy Verified 09/18/22 14:37 Review of Systems ROS Other: All systems not noted in ROS Statement are negative. <Jose J Gilbert - Last Filed: 09/18/22 14:58> ROS Other: All systems not noted in ROS Statement are negative. <Max Gomez - Last Filed: 09/18/22 15:56> ROS Statement: Those systems with pertinent positive or pertinent negative responses have been documented in the HPI. Review of Systems: CONST: Denies fever EYES: Denies blurry vision ENT: Denies nasal congestion C/V: Endorses chest wall pain RESP: Denies shortness of breath GI: Denies abdominal pain : Denies dysuria SKIN: Denies rash. MSK: Denies joint pain. NEURO: Denies headache (Jose J Gilbert) Past Medical History Past Medical History: Hypertension, Osteoarthritis (OA) Additional Past Medical History / Comment(s): Varicose veins. History of Any Multi-Drug Resistant Organisms: None Reported Past Surgical History: Appendectomy, Breast Surgery, Orthopedic Surgery Additional Past Surgical History / Comment(s): Colonoscopy, left breast lumpectomy. lt shoulder Past Anesthesia/Blood Transfusion Reactions: No Reported Reaction, Motion Sickness Past Psychological History: No Psychological Hx Reported Smoking Status: Never smoker Past Alcohol Use History: Occasional Past Drug Use History: None Reported - Past Family History Mother Family Medical History: No Reported History <Jose J Gilbert - Last Filed: 09/18/22 14:58> General Exam Limitations: no limitations <Jose J Gilbert - Last Filed: 09/18/22 14:58> - General Exam Comments Initial Comments: General: Appears in no acute distress. HEAD: Normal with no signs of head trauma. EYES: PERRLA, EOMI, conjunctiva normal, no discharge. ENT: Hearing grossly intact, normal oropharynx. RESPIRATORY: Clear breath sounds bilaterally. No wheezes, rales, or rhonchi. C/V: Regular rate and rhythm. S1 and S2 auscultated, no edema, peripheral pulses 2+ and intact throughout ABD: Abd is soft, nontender, nondistended EXT: Normal range of motion, no obvious deformity. Patient does have repr oducible left-sided rib pain and shoulder pain that she states is the pain she was experiencing. Worse with movements of her left shoulder and torso. SKIN: No rashes or lesions observed on exposed skin. NEURO: Alert and oriented 4. (Jose J Gilbert) Course Vital Signs 09/18/22 09/18/22 12:53 13:54 Temperature 97.4 F L Pulse Rate 75 74 Respiratory 18 18 Rate Blood Pressure 148/84 123/70 O2 Sat by Pulse 95 97 Oximetry Medical Decision Making - Lab Data Result diagrams: 09/18/22 13:29 09/18/22 13:29 - EKG Data -: EKG Interpreted by Me <Jose J Gilbert - Last Filed: 09/18/22 14:58> - Lab Data Result diagrams: 09/18/22 13:29 09/18/22 13:29 <Max Gomez - Last Filed: 09/18/22 15:56> - Medical Decision Making Was pt. sent in by a medical professional or institution (, PA, ZIG ZAG SPRING MACHINE OPERATOR, urgent care, hospital, or senior care...) When possible be specific @ -No Did you speak to anyone other than the patient for history (EMS, parent, family, police, friend...)? What history was obtained from this source @ -No Did you review nursing and triage notes (agree or disagree)? Why? @ -I reviewed and agree with nursing and triage notes Were old charts reviewed (outside hosp., previous admission, EMS record, old EKG, old radiological studies, urgent care reports/EKG's, senior care records)? Report findings @ -No old charts were reviewed Differential Diagnosis (chest pain, altered mental status, abdominal pain women, abdominal pain men, vaginal bleeding, weakness, fever, dyspnea, syncope, headache, dizziness, GI bleed, back pain, seizure, CVA, palpatations, mental health, musculoskeletal)? @ -Differential Chest Pain: Stable Angina, Unstable Angina, STEMI, NSTEMI Aortic Dissection, Pneumothorax, Musculoskeletal, Esophageal Spasm GERD, Cholecystitis, Pancreatitis, Zoster, t his is not meant to be an all-inclusive list. EKG interpreted by me (3pts min.). @ -As above X-rays interpreted by me (1pt min.). @ -Chest x-ray shows no obvious acute cardio pulmonary process. CT interpreted by me (1pt min.). @ -None done U/S interpreted by me (1pt. min.). @ -None done What testing was considered but not performed or refused? (CT, X-rays, U/S, labs)? Why? @ -None What meds were considered but not given or refused? Why? @ -None Did you discuss the management of the patient with other professionals (professionals i.e. , BENJAMIN, ZIG ZAG SPRING MACHINE OPERATOR, lab, RT, psych nurse, perinatal social worker, bliss press operator, teacher, career services officer, high risk case manager)? Give summary @ -No Was smoking cessation discussed for >3mins.? @ -No Was critical care preformed (if so, how long)? @ -No Were there social determinants of health that impacted care today? How? (Homelessness, low income, unemployed, alcoholism, drug addiction, transportation, low edu. Level, literacy, decrease access to med. care, residential, rehab)? @ -No Was there de-escalation of care discussed even if they declined (Discuss DNR or withdrawal of care, Hospice)? DNR status @ -No What co-morbidities impacted this encounter? (DM, HTN, Smoking, COPD, CAD, Cancer, CVA, ARF, Chemo, Hep., AIDS, mental health diagnosis, sleep apnea, morbid obesity)? @ -Left shoulder surgery Was patient admitted / discharged? Hospital course, mention meds given and route, prescriptions, significant lab abnormalities, going to OR and other pertinent info. @ -Based on the patient's presentation and physical exam, presents with atypical left-sided chest discomfort. Primarily located beneath the left armpit in the left axillary region as well as in the left shoulder. Worse with movements of left shoulder. Appears to be chest wall pain and musculoskeletal strain. However we will obtain cardiopulmonary labs. She was in agreement this plan. Vital signs within acceptable limits. Patient will be given IV Toradol as well as aspirin at this time. EKG showed no signs of acute ischemia. Chest x-ray revealed no evidence of acute cardiac primary process. Patient's labs are remarkable for no obvious acute abnormality. Troponin is still pending at this time. At this time as the enema shows. Patient signed out to Dr. Gomez [facility] emergency department physician. Disposition pending reevaluation and troponin result. Undiagnosed new problem with uncertain prognosis? @ -No Drug Therapy requiring intensive monitoring for toxicity (Heparin, Nitro, Insulin, Cardizem)? @ -No Were any procedures done? @ -No (Jose J Gilbert) The patient was endorsed me by Dr. Gilbert at her shift change pending troponin which was. We did discuss admission she is refusing to be admitted at this time for any reason this likely does represent musculoskeletal pain though we did discuss return parameters and caution because of her age. 0.022 patient has no change in her status (Max Gomez) - Lab Data Lab Results 09/18/22 09/18/22 09/18/22 Range/Units 13:29 13:29 13:29 WBC 7.8 (3.8-10.6) k/uL RBC 4.38 (3.80-5.40) m/uL Hgb 13.3 (11.4-16.0) gm/dL Hct 40.0 (34.0-46.0) % MCV 91.4 (80.0-100.0) fL MCH 30.4 (25.0-35.0) pg MCHC 33.3 (31.0-37.0) g/dL RDW 12.0 (11.5-15.5) % Plt Count 278 (150-450) k/uL MPV 7.7 Neutrophils % 56 % Lymphocytes % 31 % Monocytes % 7 % Eosinophils % 3 % Basophils % 1 % Neutrophils # 4.3 (1.3-7.7) k/uL Lymphocytes # 2.4 (1.0-4.8) k/uL Monocytes # 0.6 (0-1.0) k/uL Eosinophils # 0.2 (0-0.7) k/uL Basophils # 0.0 (0-0.2) k/uL PT 10.6 (9.0-12.0) sec INR 1.0 (<1.2) APTT 23.8 (22.0-30.0) sec Sodium 136 L (137-145) mmol/L Potassium 4.2 (3.5-5.1) mmol/L Chloride 104 (98-107) mmol/L Carbon Dioxide 23 (22-30) mmol/L Anion Gap 9 mmol/L BUN 14 (7-17) mg/dL Creatinine 0.59 (0.52-1.04) mg/dL Est GFR (CKD-EPI)AfAm >90 (>60 ml/min/1.73 sqM) Est GFR (CKD-EPI)NonAf >90 (>60 ml/min/1.73 sqM) Glucose 88 (74-99) mg/dL Calcium 9.4 (8.4-10.2) mg/dL Magnesium 1.9 (1.6-2.3) mg/dL Total Bilirubin 0.6 (0.2-1.3) mg/dL AST 31 (14-36) U/L ALT 24 (4-34) U/L Alkaline Phosphatase 92 (38-126) U/L Troponin I (0.000-0.034) ng/mL Total Protein 7.4 (6.3-8.2) g/dL Albumin 4.2 (3.5-5.0) g/dL Lipase 146 (23-300) U/L 09/18/22 Range/Units 13:29 WBC (3.8-10.6) k/uL RBC (3.80-5.40) m/uL Hgb (11.4-16.0) gm/dL Hct (34.0-46.0) % MCV (80.0-100.0) fL MCH (25.0-35.0) pg MCHC (31.0-37.0) g/dL RDW (11.5-15.5) % Plt Count (150-450) k/uL MPV Neutrophils % % Lymphocytes % % Monocytes % % Eosinophils % % Basophils % % Neutrophils # (1.3-7.7) k/uL Lymphocytes # (1.0-4.8) k/uL Monocytes # (0-1.0) k/uL Eosinophils # (0-0.7) k/uL Basophils # (0-0.2) k/uL PT (9.0-12.0) sec INR (<1.2) APTT (22.0-30.0) sec Sodium (137-145) mmol/L Potassium (3.5-5.1) mmol/L Chloride (98-107) mmol/L Carbon Dioxide (22-30) mmol/L Anion Gap mmol/L BUN (7-17) mg/dL Creatinine (0.52-1.04) mg/dL Est GFR (CKD-EPI)AfAm (>60 ml/min/1.73 sqM) Est GFR (CKD-EPI)NonAf (>60 ml/min/1.73 sqM) Glucose (74-99) mg/dL Calcium (8.4-10.2) mg/dL Magnesium (1.6-2.3) mg/dL Total Bilirubin (0.2-1.3) mg/dL AST (14-36) U/L ALT (4-34) U/L Alkaline Phosphatase (38-126) U/L Troponin I 0.022 (0.000-0.034) ng/mL Total Protein (6.3-8.2) g/dL Albumin (3.5-5.0) g/dL Lipase (23-300) U/L - EKG Data EKG Comments: 12-lead Electrocardiogram Interpretation Note EKG was reviewed and interpreted by myself. 12-lead ECG performed at 1304 is interpreted by me as revealing normal sinus rhythm at a rate of 74 beats per minute. Left axis deviation. IA interval is 191 ms, QRS duration is 140 ms, QTc is 451 ms.. Patient does have right bundle-branch block morphology. There were no obvious acute ST or T wave abnormalities to suggest myocardial ischemia or injury. Isolated T-wave inversion in lead III with no reciprocal changes. R wave progression across the precordium was satisfactory. By my interpretation this EKG is non-diagnostic for acute ischemia. (Jose J Gilbert) - Radiology Data Interpreted by me: I did interpret the chest x-ray negative for acute processes. (Max Gomez) Disposition <Jose J Gilbert - Last Filed: 09/18/22 14:58> Is patient prescribed a controlled substance at d/c from ED?: No Decision Date: 09/18/22 Decision Time: 15:56 <Max Gomez - Last Filed: 09/18/22 15:56> Clinical Impression: Chest wall syndrome, Chest wall pain, Left shoulder pain Disposition: HOME SELF-CARE Condition: Good Instructions (If sedation given, give patient instructions): Chest Wall Pain (ED), Shoulder Pain (ED) Additional Instructions: [id number] Advil for pain keep your follow-up with Dr. Abbott Referrals: Carlyn Franco DO [Primary Care Provider] - 1-2 days
[2022-09-18 14:32] LABS: ALT 24 U/L (4-34); AST 31 U/L (14-36); African American GFR (CKD) >90 (>60 ml/min/1.73 sqM); Albumin 4.2 g/dL (3.5-5.0); Alkaline Phosphatase 92 U/L (38-126); Anion Gap 9 mmol/L; Blood Urea Nitrogen 14 mg/dL (7-17); Calcium 9.4 mg/dL (8.4-10.2); Carbon Dioxide 23 mmol/L (22-30); Chloride 104 mmol/L (98-107); Glucose 88 mg/dL (74-99); Lipase 146 U/L (23-300); Magnesium 1.9 mg/dL (1.6-2.3); Non-African American GFR(CKD) >90 (>60 ml/min/1.73 sqM); Potassium 4.2 mmol/L (3.5-5.1); Sodium 136 mmol/L (137-145); Total Bilirubin 0.6 mg/dL (0.2-1.3); Total Protein 7.4 g/dL (6.3-8.2)
[2022-09-18 16:00] VITALS: BP 124/72; PULSE 72; RESP 15
== END 2022-09-18 16:05 | disposition home or self-care (01) ==
LOC: EC 12:52
DX: R07.1 Chest pain on breathing (principal); M25.512 Pain in left shoulder; I10 Essential (primary) hypertension; M19.90 Unspecified osteoarthritis, unspecified site; Z79.899 Other long term (current) drug therapy
CPT/HCPCS: 36415; 80053; 83690; 83735; 84484; 85025; 85610; 85730; 71046; 99285; 96374; J1885

== ENCOUNTER → 2022-11-05 | Outpatient (CLI) | payer MEDICARE ==
--- NOTE | 2022-11-05 10:29 | CA ---
Exercise Nuclear Stress Test Report Name: Layla Nobles Exam Date: 11/05/2022 09:59 Exam Location: [facility] Ht (in): 67 Wt (lb): 185 BSA: 1.96 Ordering Phys: Carlyn Franco DO Referring Phys: Carlyn Franco DO Technologist: Raúl Moreno Age: 71 Gender: F : 1950 Procedure CPT: Indications: R07.89 CHEST PAIN, I10 HTN ICD-10 Codes: Patient History: Medications: LISINOPRIL,,,,,, VIT D,,,,, Meds past 24 hrs: Pretest Chest Pain: STRESS TEST Minh Protocol Exercise Duration (min:sec): 03:[address] Depressions (mm): Angina Score: [place] Score: Resting HR (bpm): 85 Peak HR (bpm): 146 Resting BP (mmHg): 146 / 90 Peak BP (mmHg): 212 / 74 MPHR: 149 Target HR: 127 % MPHR: 98 METS: 5.6 Total Dose: Peak Dose: Atropine: Double Product: 28909 BP Response: Stress Termination: TARGET HR REACHED/MAX EXERTION Stress Symptoms: DIFFICULTY IN BREATHING Stress Summary: ECG ANALYSIS Resting ECG: Stress ECG: CONCLUSIONS Resting EKG: Normal sinus rhythm with right bundle branch block, heart rate 81 bpm Patient recieved IV infusion of Lexiscan 0.4mg and at peak infusion Stress EKG showed: No significant ST-T wave changes diagnostic for ischemia by ST segment analysis Arrythmias: No ectopic rhythm or sustained arrhythmias Conclusions: 1. Normal resting EKG 2. Normal EKG response to lexiscan infusion 3. Nuclear perfusion imaging is reported separately by the radiology team. Please refer to that report for complete interpretation of this study. Dr Jayden Church (Electronically Signed) Final Date: 05 November 2022 10:29
--- NOTE | 2022-11-06 07:06 | NM ---
EXAMINATION TYPE: NM stress cardiolite complete DATE OF EXAM: 11/05/2022 COMPARISON: NONE CLINICAL INDICATION: Female, 71 years old with history of R07.89 CHEST PAIN, I10 HTN; TECHNIQUE: After the intravenous administration of 9.6 mCi Tc 99m Sestamibi - Rest images obtained 4 5 minutes post injection. The patient exercised using a YASEMIN protocol and 1 minute prior to peak e xercise was injected with 24.8 mCi Tc 99m Sestamibi - Stress images obtained 40 minutes post injectio n. FINDINGS: Targeted heart rate was achieved during performance of the study. Review of stress and rest SPECT lucas ges demonstrates reversible ischemia involving the apical lateral wall. Small area of fixed defect in volving the lateral wall as well. Gated analysis shows normal wall motion with an estimated left vent ricular ejection fraction of 67 %. IMPRESSION: Findings compatible with stress induced ischemia as discussed above.
== END | disposition home or self-care (01) ==
LOC: RADNMMAIN 07:39
PROVIDERS: ATTEND Family Medicine
DX: I10 Essential (primary) hypertension (principal); I21.29 ST elevation (STEMI) myocardial infarction involving other sites; R07.89 Other chest pain
CPT/HCPCS: 93017; 78452; A9500

== ENCOUNTER 2022-12-03 09:08 | Day surgery (SDC) | payer MEDICARE ==
[~2022-12-03 09:08] MED LIST changes: +ALPRAZolam 0.5 MG TAB PO PRN; +ASPIRIN 325 MG TAB PO ONE; +ATORVASTATIN 80 MG TAB PO ONE; -DEXAMETHASONE SOD PHOSPHATE 10 MG/ML 1 ML VIAL IV ONE; +HEPARIN SODIUM,PORCINE (1 ML) 2,500 UNIT in SODIUM CHLORIDE 0.9% 250 ML IRRIGATION PRN; +HEPARIN SODIUM,PORCINE 10,000 UNIT in SODIUM CHLORIDE 0.9% 1,000 ML IRRIGATION PRN; -HEPARIN SODIUM,PORCINE 5,000 UNIT/ML 1 ML VIAL SQ ONE; -HYDROmorphone 0.5 MG/0.5 ML SYRINGE IVP PRN; -LACTATED RINGERS 1,000 ML IV SCH; +NITROGLYCERIN SL TABS 0.4 MG TAB SUBLINGUAL PRN; -ONDANSETRON 4 MG/2 ML VIAL IVP ONE; -Pre Op ABX Message 1 EACH MISC MISCELLANE ONE; +SODIUM CHLORIDE 0.9% 1,000 ML in EMPTY BAG 1 BAG IV SCH
[2022-12-03] MEDS ORDERED: SODIUM CHLORIDE 0.9% 1,000 ML IV ONE (09:26)
[2022-12-03 09:31] VITALS: RESP 16; TEMP 98.2
[2022-12-03] MEDS ORDERED: MIDAZOLAM 2 MG/2 ML VIAL IVP ONE (10:34)
[2022-12-03] MEDS ORDERED: fentaNYL (PF) 50 MCG/ML 2 ML AMP IVP ONE (10:35)
[2022-12-03] MEDS ORDERED: LIDOCAINE 1% INJ 10MG/ML (5 ML VIAL-PF) SQ ONE (10:40)
[2022-12-03] MEDS ORDERED: VERAPAMIL SYRINGE (5 MG/10 ML) INTRAARTER ONE (10:41)
[2022-12-03] MEDS ORDERED: HEPARIN SODIUM 1,000 UN/ML (10ML VL) IV ONE (10:42)
[2022-12-03] MEDS ORDERED: IOPAMIDOL-370 100ML BTL INJ ONE (10:54)
--- NOTE | 2022-12-03 12:11 | CC ---
CARDIAC CATHETERIZATION REPORT REFERRING PHYSICIAN: Dr. Franco. INDICATION: Chest pain with abnormal stress test. PROCEDURE NOTE: After obtaining informed consent, left heart catheterization and coronary angiogram were performed via the right radial artery using standard [place]wn catheters. The patient tolerated the procedure well without any obvious immediate complications. A TR band was used for hemostasis. The patient received moderate conscious sedation. Total sedation time was 24 minutes. Right radial artery access was obtained using Seldinger technique, 6-Urdu sheath was placed. Catheters and wires were floated into the ascending aorta under fluoroscopic guidance. FINDINGS: HEMODYNAMICS: 1. Central aortic pressure is 130/70 mm. 2. Left ventriculogram: Left ventriculogram is not performed. ANGIOGRAPHIC DATA: 1. Right coronary artery: Right coronary artery is a large dominant vessel and is free of stenosis. 2. Left main coronary artery is a normal-sized vessel and is free of disease, it divides into left anterior descending coronary artery and circumflex coronary artery. LAD and its branches, circumflex coronary artery and its branches are free of significant stenosis. There is mild nonobstructive plaque in the LAD. CONCLUSIONS: 1. No significant obstructive coronary artery disease. 2. False-positive stress test. PLAN: I reviewed angiographic data with the patient and advised her on risk factor modification. MMODL / IJN: [id number] /
[2022-12-03] MEDS ORDERED: RX INFO: IV CONTRAST WAS GIVEN 1 EACH MISC MISCELLANE PRN (12:20)
[2022-12-03] MEDS ORDERED: SODIUM CHLORIDE 0.9% 1,000 ML IV SCH (12:30)
[2022-12-03 13:25] VITALS: PULSE 66
[2022-12-03 15:15] VITALS: BP 136/72
== END 2022-12-03 15:10 | disposition home or self-care (01) ==
LOC: CATHCVL 09:08
PROVIDERS: ATTEND Internal Medicine Cardiovascular Disease
DX: R07.2 Precordial pain (principal); I10 Essential (primary) hypertension; Z79.899 Other long term (current) drug therapy
CPT/HCPCS: 93454; C1769 ×2; C1894; J2250; J2001; J3010; J1644; Q9967

== ENCOUNTER → 2023-03-10 | Outpatient (CLI) | payer MEDICARE ==
--- NOTE | 2023-03-12 08:59 | MM ---
Reason for Exam: Screening (asymptomatic). Last screening mammogram was performed 12 month(s) ago. Patient History: Menarche at age 12. First Full-Term at age 36. Late child-bearing (after 30). Postmenopausal. Previous chest radiation therapy. Patient used Hormonal Contraceptives for 2 years. 11/08/2018, Lumpectomy on the Left side. 11/08/2018, Benign Core Biopsy on the left side. 09/08/2018, High risk Core Biopsy on the left side. Risk Values: Margarita 5 year model risk: 3.6%. NCI Lifetime model risk: 9.3%. Prior Study Comparison: 12/22/2019 Bilateral Diagnostic Mammogram, [facility]. 01/30/2021 Bilateral Screening Mammogram, [facility]. 03/04/2022 Bilateral MG 3D screening mammo w/cad, [facility]. Tissue Density: The breast tissue is heterogeneously dense. This may lower the sensitivity of mammography. Findings: Analyzed By CAD. There is no suspicious group of microcalcifications or new suspicious mass in either breast. Overall Assessment: Benign, BI-RAD 2 Management: Screening Mammogram of both breasts in 1 year. . Patient should continue monthly self-breast exams. A clinical breast exam by your physician is recommended on an annual basis. This exam should not preclude additional follow-up of suspicious palpable abnormalities. Note on Margarita scores and lifetime risk: 1. A Margarita score greater than 3% is considered moderate risk. If this is the case, consider specialist referral to assess eligibility for a risk reducing agent. 2. If overall lifetime risk for the development of breast cancer is 20% or higher, the patient may qualify for future screening with alternating mammogram and breast MRI. Electronically signed and approved by: Wilfredo Davis M.D. Radiologis
== END | disposition home or self-care (01) ==
LOC: RADMAMWWP 07:50
PROVIDERS: ATTEND Family Medicine
DX: Z12.31 Encounter for screening mammogram for malignant neoplasm of breast (principal); Z78.0 Asymptomatic menopausal state
CPT/HCPCS: 77063; 77067

== ENCOUNTER → 2024-03-15 | Outpatient (CLI) | payer MEDICARE ==
--- NOTE | 2024-03-17 13:14 | MM ---
Reason for Exam: Screening (asymptomatic). Last screening mammogram was performed 12 month(s) ago. Patient History: Menarche at age 12. First Full-Term at age 36. Late child-bearing (after 30). Postmenopausal. Previous chest radiation therapy. Patient used Hormonal Contraceptives for 2 years. 11/08/2018, Lumpectomy on the Left side. 11/08/2018, Benign Core Biopsy on the left side. 09/08/2018, High risk Core Biopsy on the left side. Risk Values: Margarita 5 year model risk: 3.6%. NCI Lifetime model risk: 8.8%. Prior Study Comparison: 01/30/2021 Bilateral Screening Mammogram, [facility]. 03/04/2022 Bilateral MG 3D screening mammo w/cad, [facility]. 03/10/2023 Bilateral MG 3D screening mammo w/cad, [facility]. Tissue Density: There are scattered areas of fibroglandular density. Findings: Analyzed By CAD. Post surgical change redemonstrated on the left. There is no suspicious group of microcalcifications or new suspicious mass in either breast. Overall Assessment: Benign, BI-RAD 2 Management: Screening Mammogram of both breasts in 1 year. See note below in regards to patient's increased 5 year Margarita score. Patient should continue monthly self-breast exams. A clinical breast exam by your physician is recommended on an annual basis. This exam should not preclude additional follow-up of suspicious palpable abnormalities. Note on Margarita scores and lifetime risk: 1. A Margarita score greater than 3% is considered moderate risk. If this is the case, consider specialist referral to assess eligibility for a risk reducing agent. 2. If overall lifetime risk for the development of breast cancer is 20% or higher, the patient may qualify for future screening with alternating mammogram and breast MRI. [facility], , 03/17/2024 1:11 PM. Electronically signed and approved by: Bharath Ramos M.D. Radiologist
== END | disposition home or self-care (01) ==
LOC: RADMAMWWP 08:19
PROVIDERS: ATTEND Family Medicine
DX: Z12.31 Encounter for screening mammogram for malignant neoplasm of breast (principal); Z78.0 Asymptomatic menopausal state; R92.323 Mammographic fibroglandular density, bilateral breasts
CPT/HCPCS: 77063; 77067